=== PATIENT | male | born 1995 | race Caucasian/White ===

== ENCOUNTER 2016-12-26 01:27 | Emergency (ER) | payer MEDICAID, OTHER ==
[2016-12-26] MEDS ORDERED: TRAMADOL HCL 50 MG TABLET PO ONE (02:29)
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
[2016-12-26 03:50] VITALS: BP 112/61
== END 2016-12-26 03:50 | disposition home or self-care (01) ==
LOC: ER 01:27
DX: S16.1XXA Strain of muscle, fascia and tendon at neck level, initial encounter (principal); S20.212A Contusion of left front wall of thorax, initial encounter; S40.022A Contusion of left upper arm, initial encounter; S80.211A Abrasion, right knee, initial encounter; S30.811A Abrasion of abdominal wall, initial encounter; M54.2 Cervicalgia; R07.81 Pleurodynia; R22.0 Localized swelling, mass and lump, head; V47.5XXA Car driver injured in collision with fixed or stationary object in traffic accident, initial encounter; J45.909 Unspecified asthma, uncomplicated; Z88.8 Allergy status to other drugs, medicaments and biological substances
CPT/HCPCS: 71010; 72125; 99284